=== PATIENT | male | born 1945 | race Caucasian/White ===

== ENCOUNTER → 2019-01-10 | Outpatient (CLI) | payer MEDICARE, BC ==
[~2019-01-10] MED LIST: FENTANYL PF 100 MCG/2ML ONE; FLUMAZENIL 0.1 MG/1 ML, 5ML ONE; MIDAZOLAM 1 MG/ML, 5ML ONE; NALOXONE 1 MG/ML, 2ML ONE
== END | disposition home or self-care (01) ==
LOC: RAD 08:00
PROVIDERS: ATTEND Nurse Practitioner
DX: M54.16 Radiculopathy, lumbar region (principal); M47.816 Spondylosis without myelopathy or radiculopathy, lumbar region
CPT/HCPCS: 72148; 99156; 99157; J2250; J3010; J2310

== ENCOUNTER 2021-04-09 12:40 | Emergency (ER) | payer MEDICARE, BC ==
[~2021-04-09] VITALS: Ht 172.7 cm; Wt 116.9 kg
[2021-04-09 12:46] VITALS: BP 161/91
--- NOTE | 2021-04-09 13:05 | NUR ---
PT AMBULATED TO ROOM FROM TRIAGE. PT STATED THAT HE FELL OFF LADDER ABOUT 3 FEET FROM THE GROUND ON TO HIS LEFT SHOULDER. PT UNABLE TO MOVE ARM WITHOUT SEVERE PAIN IN SHOULDER. PT DENIES ANY OTHER INJURY OR BLOOD THINNER USE.
[2021-04-09] MEDS ORDERED: HYDROmorphone 1 MG/ML, 1ML INJ ONE (13:08)
[2021-04-09] MEDS ORDERED: ONDANSETRON ODT 4 MG ONE (13:08)
[2021-04-09] MEDS ORDERED: ONDANSETRON ODT 4 MG PO ONE (13:30)
[2021-04-09] MEDS ORDERED: HYDROmorphone 1 MG/ML, 1ML INJ IM ONE (13:30)
--- NOTE | 2021-04-09 13:45 | NUR ---
DISCHARGE INSTRUCTIONS REVIEWED WITH PT. ALL QUESTIONS ANSWERED AT THIS TIME.
== END 2021-04-09 13:47 | disposition home or self-care (01) ==
LOC: ED 13:40
DX: S43.422A Sprain of left rotator cuff capsule, initial encounter (principal); S40.012A Contusion of left shoulder, initial encounter; Z87.891 Personal history of nicotine dependence; W11.XXXA Fall on and from ladder, initial encounter; Y93.89 Activity, other specified; Y92.009 Unspecified place in unspecified non-institutional (private) residence as the place of occurrence of the external cause; Y99.8 Other external cause status
CPT/HCPCS: 73030; 96372; 99283; J1170; Q0162